=== PATIENT | female | born 1990 ===

== ENCOUNTER 2017-09-06 11:13 | Emergency (ER) | payer SELFPAY ==
[2017-09-06] MEDS ORDERED: Lidocaine 2% PF * 5 ML VIAL INJ ONE (12:33)
--- NOTE | 2017-09-06 12:33 | UC ---
Laceration HPI - HPI Summary HPI Summary: Pt presents with chin laceration sustained about 1 hour prior to her arrival to Urgent Care. 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 She sustained a laceration to her chin. She also complains of right hand pain and right ear ringing. She tells me that the mixtures were not toxic and have no health risks individually or when mixed, she believes it was a faulty container. She denies fever, chills, cough, SOB, chest pain, abdominal pain, n/v/d/c, numbness, tingling, headache, or dizziness. - History Of Current Complaint Chief Complaint: UCLaceration Stated Complaint: CHIN LAC Time Seen by Provider: 09/06/17 12:27 Hx Obtained From: Patient Hx Last Menstrual Period: 08/12/17 Laceration Location: Face Mechanism Of Injury: Sharp Trauma Onset/Duration: Sudden Onset Severity: Mild Pain Intensity: 1 Pain Scale Used: 0-10 Numeric - Allergies/Home Medications Allergies/Adverse Reactions: Allergies Allergy/AdvReac Type Severity Reaction Status Date / Time No Known Allergies Allergy Verified 09/06/17 11:41 Home Medications: Home Medications Control 1 tab PO DAILY 09/06/17 [History Confirmed 09/06/17] Levothyroxine TAB* [Synthroid 100 MCG TAB*] 100 mcg PO DAILY 09/06/17 [History Confirmed 09/06/17] PMH/Surg Hx/FS Hx/Imm Hx Previously Healthy: Yes Endocrine History: Hypothyroidism - Surgical History Surgical History: None - Social History Lives: Alone Alcohol Use: Weekly Alcohol Amount: 2 drinks weekly Substance Use Type: None Smoking Status (MU): Never Smoked Tobacco - Immunization History Most Recent Influenza Vaccination: Fall 2016 Most Recent Tetanus Shot: 2016 Review of Systems Constitutional: Negative Skin: Other - Laceration to chin Eyes: Negative ENT: Other - Ringing in right ear Respiratory: Negative Cardiovascular: Negative Gastrointestinal: Negative Motor: Negative Neurovascular: Negative Musculoskeletal: Other: - Pain right hand Neurological: Negative All Other Systems Reviewed And Are Negative: Yes Physical Exam Triage Information Reviewed: Yes Appearance: Well-Appearing, No Pain Distress, Well-Nourished Vital Signs: Initial Vital Signs Temp 100.8 F 09/06/17 11:29 Pulse 79 09/06/17 11:29 Resp 18 09/06/17 11:29 BP 146/87 09/06/17 11:29 Pulse Ox 100 09/06/17 11:29 Vital Signs Reviewed: Yes Eyes: Positive: Conjunctiva Clear, Other: - EOMI. PERRLA.. Negative: Conjunctiva Inflamed, Discharge ENT: Positive: Hearing grossly normal, Pharynx normal, TMs normal, Uvula midline. Negative: Pharyngeal erythema, Nasal congestion, Nasal drainage, TM bulging, TM dull, TM red, Tonsillar swelling, Tonsillar exudate, Hoarse voice, Sinus tenderness Neck: Positive: Supple, Nontender, No Lymphadenopathy Respiratory: Positive: Chest non-tender, Lungs clear, Normal breath sounds, No respiratory distress, No accessory muscle use Cardiovascular: Positive: RRR, No Murmur, Pulses Normal Abdomen Description: Positive: Nontender, No Organomegaly, Soft. Negative: Distended, Guarding Bowel Sounds: Positive: Present Musculoskeletal: Positive: Other: - TTP over right thenar region where the impact of the container occurred. FROM. No edema. Neurological: Positive: Alert, Other: - CN II-XII grossly intact. No focal deficits. Negative: Fatigued Psychological: Positive: Age Appropriate Behavior Skin: Positive: Other - 1.5cm vertical linear superficial laceration to chin. Bleeding was stopped with direct pressure. No drainage, erythema, ecchymosis, or FBs. Laceration Repair - Laceration Repair 1 Description: Linear Laceration Size After Repair: Length (cm) - 1.5 Modified For Repair: No Type Injection: Local Anesthesia Used: 2.0% Lido Irrigation With Pressure Irrigation Device: Yes Closure Material: Sutures - 6-0 Suture Of: Skin Suture Type: Nylon Laceration Course/Dx - Course/Dx Course Of Treatment: Neto SIMMONS Spoke to Vaishnavi Spencer at poison control about reagent of concern 1XHB. Ms. Spencer relayed that no constiuent reagents were of concern and that only required action w/ respect to reagent is to flush lac thoroughly with sterile NS or H20. A time out was performed, witnessed, and signed. The area was pressured irrigated with 500mL sterile saline. 2mL of 2% lidocaine without epi was administered and good anesthetization was achieved. An Iodine swab was used to cleanse the area. In the usual sterile fashion, three 6-0 nylon sutures were placed. The wound was bandaged with telfa and tegaderm. Pt tolerated procedure well. - Differential Dx - Laceration/Wound Provider Diagnoses: Laceration 1.5cm to chin Discharge - Discharge Plan Condition: Stable Disposition: HOME Patient Education Materials: Care For Your Stitches (ED) Referrals: No Primary Care Phys,NOPCP [Primary Care Provider] - Additional Instructions: If you develop a fever, shortness of breath, chest pain, new or worsening symptoms - please call your PCP or go to the ED. Your blood pressure was mildly elevated at todays visit. Please see your primary provider within 4 weeks for recheck and re-evaluation. 1) Please keep the area bandaged, clean, dry, and intact for the next 24 hours 2) If you develop a fever, colored or thick discharge, increased pain or swelling - please call your PCP or go to the ED. 3) Please return in 4-5 days to have your THREE sutures removed.
== END 2017-09-06 13:06 | disposition home or self-care (01) ==
LOC: UCEAST 11:13
DX: S01.81XA Laceration without foreign body of other part of head, initial encounter (principal); W40.8XXA Explosion of other specified explosive materials, initial encounter; Y93.89 Activity, other specified; Y92.59 Other trade areas as the place of occurrence of the external cause; Y99.0 Civilian activity done for income or pay; M79.641 Pain in right hand; H93.11 Tinnitus, right ear; E03.9 Hypothyroidism, unspecified
CPT/HCPCS: 12011; 96372; 99201; G0463

== ENCOUNTER 2018-01-28 13:58 | Emergency (ER) | payer BC ==
--- NOTE | 2018-01-28 14:13 | UC ---
Bite Injury/Animal HPI - HPI Summary HPI Summary: 27 yo female presents for rabies shots. She tells me that early this morning she found an alive bat in her bedroom. She caught the bat and threw it out the window. The bat did not bite her. She called the health department and they advised her to be seen here for RIG and rabies vaccine. Her tetanus is UTD. - History of Current Complaint Stated Complaint: BAT EXPOSURE Time Seen by Provider: 01/28/18 14:13 Hx Obtained From: Patient Hx Last Menstrual Period: 08/12/17 ?: No Severity Currently: None - Allergies/Home Medications Allergies/Adverse Reactions: Allergies Allergy/AdvReac Type Severity Reaction Status Date / Time No Known Allergies Allergy Verified 01/28/18 14:25 Home Medications: Home Medications Desogestrel-Ethinyl Estradiol [Caziant 0.1/0.125/0.15 -0.025 mg] 1 lena PO [History] PMH/Surg Hx/FS Hx/Imm Hx Previously Healthy: Yes Endocrine History: Hypothyroidism - Surgical History Surgical History: None - Family History Known Family History: Positive: None - Social History Occupation: Employed Full-time Lives: With Family Alcohol Use: Weekly Alcohol Amount: 2 drinks weekly Substance Use Type: None Smoking Status (MU): Never Smoked Tobacco - Immunization History Most Recent Influenza Vaccination: Fall 2016 Most Recent Tetanus Shot: 2015 Review of Systems Constitutional: Negative Skin: Negative Eyes: Negative Respiratory: Negative Cardiovascular: Negative Gastrointestinal: Negative Neurovascular: Negative Musculoskeletal: Negative Neurological: Negative Psychological: Negative All Other Systems Reviewed And Are Negative: Yes Physical Exam - Summary Physical Exam Summary: GENERAL: NAD. Obese SKIN: No rashes, sores, wounds, or bites. NECK: Supple. Nontender. No lymphadenopathy. CHEST: No accessory muscle use. Breathing comfortably and in no distress. CV: RRR. Without m/r/g. NEURO: Alert. CN II-XII grossly intact. PSYCH: Age appropriate behavior. Triage Information Reviewed: Yes Vital Signs: Vital Signs: Temp Pulse Resp BP Pulse Ox 98.0 F 64 18 148/70 100 01/28/18 14:19 01/28/18 14:19 01/28/18 14:19 01/28/18 14:19 01/28/18 14:19 Bite Injury Course/Dx - Course Course Of Treatment: Rabies vaccine given. Based on weight, 17.32mL of RIG was given. She will f/u with the health department. - Differential Dx/Diagnosis Provider Diagnoses: Bat exposure Discharge - Sign-Out/Discharge Documenting (check all that apply): Discharge/Admit/Transfer - Discharge Plan Condition: Stable Disposition: HOME Patient Education Materials: Rabies Immune Globulin (By injection), Rabies (ED) Referrals: No Primary Care Phys,NOPCP [Primary Care Provider] - Additional Instructions: If you develop a fever, shortness of breath, chest pain, new or worsening symptoms - please call your PCP or go to the ED. - Billing Disposition and Condition Condition: STABLE Disposition: HOME
[2018-01-28] MEDS ORDERED: Rabies Immune Globulin 10 ML* 150 UNIT/ML VIAL IM ONE (14:37)
[2018-01-28] MEDS ORDERED: Rabies VIRUS VACCINE (Imovax)* 2.5 UNIT/ML 1 ML IM ONE (14:37)
== END 2018-01-28 15:01 | disposition home or self-care (01) ==
LOC: UCEAST 13:58
DX: Z20.3 Contact with and (suspected) exposure to rabies (principal); Z23 Encounter for immunization; E03.9 Hypothyroidism, unspecified
CPT/HCPCS: 90375; 90471; 96372; 99211; G0463